=== PATIENT | male | born 1935 | race Caucasian/White ===

== ENCOUNTER 2016-07-19 09:40 | Emergency (ER) | payer MEDICARE, OTHER ==
[~2016-07-19] VITALS: Ht 175.3 cm; Wt 83.9 kg
[~2016-07-19 09:40] MED LIST: COSOPT 2%-0.5%10 ML OP; LATANOPROST 2.2.5 ML OP; LISINOPRIL20 MG PO; LOSARTAN POTAS100 MG PO; NORCO 325 MG-51 TAB PO; NORVASC 5MG. TAB5 MG PO; PROMETHAZINE HC25 M1 PO
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
[2016-07-19 10:07] VITALS: BP 160/75
== END 2016-07-19 10:08 | disposition home or self-care (01) ==
LOC: ER 09:40
DX: K59.03 Drug induced constipation (principal); I10 Essential (primary) hypertension; K21.9 Gastro-esophageal reflux disease without esophagitis
CPT/HCPCS: J2310

== ENCOUNTER → 2016-07-28 | Outpatient (CLI) | payer MEDICARE, OTHER ==
--- NOTE | 2016-07-28 14:36 | RADIOLOGY REPORT PS360 ---
KNEE-4 OR 5 VIEWS-LT HISTORY: LEFT KNEE PAIN ORDERING PHYSICIAN: Cale Hines MD PATIENT AGE: 81 years COMPARISON: 05/29/2016 FINDINGS: Technique: Weightbearing AP, lateral and Lewis views were performed as well as oblique. [id number] tricompartmental osteoarthritic changes are present with decrease in the joint space and osteophyte formation. Calcific densities are present along the medial aspect of the medial joint space and along the anterior aspect of the lateral joint space suggesting loose bodies. No other significant anomalies are evident. IMPRESSION: 1. Mild to moderate osteoarthritic change 2. Loose bodies along the medial and lateral compartment
== END ==
LOC: RAD 13:12
DX: M25.562 Pain in left knee (principal)